=== PATIENT | female | born 1980 | race Caucasian/White ===

== ENCOUNTER 2020-05-18 09:08 | Outpatient (REF) | payer BC, SELFPAY ==
[2020-05-18 10:07] LABS: MANUAL DIFF FLAG NO
[2020-05-18 10:16] LABS: Basophils Percent Auto 0.4 % (0-2); Eosinophils Absolute Auto 0.1 X10*3/uL (0.0-0.4); Eosinophils Percent Auto 1.6 % (0-4); Hematocrit 38.2 % (37-47); Hemoglobin 12.1 g/dl (12.0-16.0); Imm Gran Abs Auto 0.02 X10*3/uL (0.00-0.03); Imm Gran Pct Auto 0.4 % (0.0-0.4); Lymphocytes Absolute Auto 1.3 X10*3/uL (1.2-4.9); Lymphocytes Percent Auto 25.9 % (20-40); Mean Corpuscular HGB Conc 31.7 g/dl (31.0-35.0); Mean Corpuscular Hemoglobin 27.2 pg (27.0-33.0); Mean Corpuscular Volume 85.8 fL (80-98); Mean Platelet Volume 10.6 fL (9.4-12.3); Monocytes Absolute Auto 0.4 X10*3/uL (0.1-1.2); Monocytes Percent Auto 7.5 % (2-11); Neutrophils Absolute Auto 3.3 X10*3/uL (2.0-8.3); Neutrophils Percent Auto 64.2 % (45-73); Platelet Count 227 X10*3/uL (160-400); Red Blood Count 4.45 X10*6/uL (4.20-5.50); Red Cell Distribution Width 14.9 % (11.0-16.0); White Blood Count 5.1 X10*3/uL (4.8-10.8)
[2020-05-18 10:48] LABS: Alanine Aminotransferase 17 U/L (0-31); Albumin Level 4.3 g/dL (3.5-5.0); Alkaline Phosphatase 66 U/L (39-117); Anion Gap 11 (12-20); Aspartate Amino Transferase 20 U/L (5-31); Bilirubin Total 0.5 mg/dL (0.0-1.0); Blood Urea Nitrogen 13 mg/dL (9-16); Calcium 8.4 mg/dL (8.4-10.2); Carbon Dioxide 29 mmol/L (22-29); Chloride 104 mmol/L (96-108); Cholesterol 167 mg/dL; Estimated Glomerular Filt Rate > 60; Glucose Fasting 91 mg/dL (60-99); HDL Cholesterol 49 mg/dL; LDL Cholesterol Calculated 102 mg/dl; Potassium 4.5 mmol/l (3.3-5.1); Sodium 139 mmol/L (135-145); Total Protein 6.8 g/dL (6.5-8.0); Triglycerides 83 mg/dL
[2020-05-18 11:12] LABS: Ferritin 1 ng/mL (10-250); Thyroid Stimulating Hormone 1.93 mIU/mL (0.32-4.0)
== END 2020-05-18 09:09 | disposition home or self-care (01) ==
LOC: HO.LAB 09:08
PROVIDERS: PCP Internal Medicine; Visit Provider Internal Medicine
DX: M51.16 Intervertebral disc disorders with radiculopathy, lumbar region (principal)
CPT/HCPCS: 36415; 80053; 80061; 82728; 84443; 85025

== ENCOUNTER 2020-06-12 09:00 | Outpatient (RCR) | payer BC, SELFPAY ==
--- NOTE | 2020-06-01 13:56 | MHC.PT.EP ---
[facility] [place] Office [place] Office [place] Office [address] Carlos Stanton [address] [phone] F: [phone] F: [phone] F: [phone] F: [phone] Physical Therapy Plan of Care Date of Evaluation: 06/01/20 Date of Surgery: Diagnosis: lumbar radiculopathy Assessment: The patient is presenting with symptoms consistent with a posterolateral derangement. The patient responded best to prone lying and slight trunk extension. The patient will need behavior modification, posture education, and body mechanics training to avoid aggravating her pain. She has reduced strength in right LE and associated radiculopathy. I believe she has excellent prognosis using Estee therapy. Frequency and Duration: The patient will be seen 2x/week x 5 weeks Short Term Goals: 1.Pt to able to demonstrate proper sitting posture with the use of a lumbar roll to decrease aggravating factors. 2. Pt to be able to demonstrate proper posture for common leisure activities such as crocheting and phone/tablet use. 3. For the patient to demonstrate proper upright sitting posture with use of the lumbar roll to improve compliance and carryover. Prison Goals: 4 weeks - The patient to demonstrate proper lifting mechanics for household chore activities to show improved functional mobility. 4 weeks - The patient to report no leg or hip pain in order to show centralization of pain and reduction of lumbar derangement 4 weeks - Pt to be able to demonstrate self management of lumbar pain by demonstration of HEP. Treatment Plan: Modalities to reduce pain, spasms and effusion. Manual therapy to restore motion and function. Therapeutic exercise to improve strength and flexibility. Neuromuscular re-education for posture and balance. Therapeutic activities to return to functional activities of daily living. Please sign and return to therapist. Thank you for your referral.
--- NOTE | 2020-07-13 14:41 | MHC.PT.DC ---
[facility] [place] Office [place] Office [place] Office [address] Carlos Stanton [address] [phone] F: [phone] F: [phone] F: [phone] F: [phone] Physical Therapy Discharge Report Diagnosis: lumbar radiculopathy Date of Surgery: Date of Evaluation: 06/01/20 Date of Discharge: 06/13/20 Treatments to Date: 2 Cancellations to Date: 0 No Shows to Date: 0 Discharge Status: Independent with HEP Discharge Summary: Pt only attended 2 visits. She did not have leg symptoms after her 2nd visit. She did not return to f/u visits. 06/12 pt reports 2 pillows prone lying relieve Left LE sx. pt to continue to address home stressors and work posture. Electronically signed by: Mitzi Daly PT DPT Please sign and return to therapist. Thank you for your referral.
== END 2020-07-26 07:52 | disposition other institution (70) ==
LOC: HO.PT 09:00
PROVIDERS: Visit Provider Internal Medicine
DX: M54.16 Radiculopathy, lumbar region (principal)
CPT/HCPCS: 97110; 97112; 97162

== ENCOUNTER 2021-01-16 07:46 | Outpatient (REF) | payer BC, SELFPAY ==
[2021-01-16 09:09] LABS: MANUAL DIFF FLAG NO
[2021-01-16 09:13] LABS: Basophils Percent Auto 0.2 % (0-2); Eosinophils Absolute Auto 0.1 X10*3/uL (0.0-0.4); Eosinophils Percent Auto 2.4 % (0-4); Hematocrit 36.4 % (37-47); Hemoglobin 11.2 g/dl (12.0-16.0); Imm Gran Abs Auto 0.02 X10*3/uL (0.00-0.03); Imm Gran Pct Auto 0.4 % (0.0-0.4); Lymphocytes Absolute Auto 1.4 X10*3/uL (1.2-4.9); Lymphocytes Percent Auto 30.6 % (20-40); Mean Corpuscular HGB Conc 30.8 g/dl (31.0-35.0); Mean Corpuscular Hemoglobin 25.5 pg (27.0-33.0); Mean Corpuscular Volume 82.9 fL (80-98); Mean Platelet Volume 10.5 fL (9.4-12.3); Monocytes Absolute Auto 0.4 X10*3/uL (0.1-1.2); Monocytes Percent Auto 8.7 % (2-11); Neutrophils Absolute Auto 2.6 X10*3/uL (2.0-8.3); Neutrophils Percent Auto 57.7 % (45-73); Platelet Count 283 X10*3/uL (160-400); Red Blood Count 4.39 X10*6/uL (4.20-5.50); Red Cell Distribution Width 15.4 % (11.0-16.0); White Blood Count 4.6 X10*3/uL (4.8-10.8)
[2021-01-16 09:35] LABS: Alanine Aminotransferase 16 U/L (0-31); Albumin Level 4.3 g/dL (3.5-5.0); Alkaline Phosphatase 69 U/L (39-117); Anion Gap 9 (12-20); Aspartate Amino Transferase 19 U/L (5-31); Bilirubin Total 0.3 mg/dL (0.0-1.0); Blood Urea Nitrogen 19 mg/dL (9-16); Calcium 9.1 mg/dL (8.4-10.2); Carbon Dioxide 28 mmol/L (22-29); Chloride 107 mmol/L (96-108); Estimated Glomerular Filt Rate > 60; Glucose Random 111 mg/dL (60-115); Potassium 4.3 mmol/L (3.3-5.1); Sodium 140 mmol/L (135-145); Total Protein 6.9 g/dL (6.5-8.0)
[2021-01-16 09:41] LABS: Ferritin 3 ng/mL (10-250); Thyroid Stimulating Hormone 1.92 uIU/mL (0.32-4.0)
== END 2021-01-16 07:47 | disposition home or self-care (01) ==
LOC: HO.LAB 07:46
PROVIDERS: PCP Internal Medicine; Visit Provider Internal Medicine
DX: D50.9 Iron deficiency anemia, unspecified (principal); G47.33 Obstructive sleep apnea (adult) (pediatric); M54.2 Cervicalgia; R21 Rash and other nonspecific skin eruption; R53.83 Other fatigue
CPT/HCPCS: 36415; 80053; 82728; 84443; 85025

== ENCOUNTER 2021-01-26 07:40 | Outpatient (REF) | payer BC, SELFPAY | END 2021-01-26 07:41 | disposition home or self-care (01) | LOC: HO.HOSX 07:40 | PROVIDERS: Visit Provider Physician Assistant | DX: Z13.89 Encounter for screening for other disorder (principal) ==

== ENCOUNTER 2021-02-07 06:34 | Outpatient (REF) | payer BC, SELFPAY | END 2021-02-07 06:35 | disposition home or self-care (01) | LOC: HO.HOSX 06:34 | PROVIDERS: Visit Provider Physician Assistant | DX: Z13.89 Encounter for screening for other disorder (principal) ==

== ENCOUNTER 2021-02-14 06:15 | Outpatient (REF) | payer BC, SELFPAY | END 2021-02-14 06:16 | disposition home or self-care (01) | LOC: HO.HOSX 06:15 | PROVIDERS: Visit Provider Physician Assistant | DX: Z13.89 Encounter for screening for other disorder (principal) ==

== ENCOUNTER 2022-07-29 11:42 | Outpatient (REF) | payer BC, SELFPAY ==
[2022-07-29 11:54] LABS: MANUAL DIFF FLAG NO
[2022-07-29 12:12] LABS: Basophils Percent Auto 0.4 % (0-2); Eosinophils Absolute Auto 0.1 X10*3/uL (0.0-0.4); Eosinophils Percent Auto 1.8 % (0-4); Hematocrit 36.9 % (37.0-47.0); Hemoglobin 11.9 g/dl (12.0-16.0); Imm Gran Abs Auto 0.01 X10*3/uL (0.00-0.03); Imm Gran Pct Auto 0.2 % (0.0-0.4); Lymphocytes Absolute Auto 1.6 X10*3/uL (1.2-4.9); Lymphocytes Percent Auto 28.1 % (20-40); Mean Corpuscular HGB Conc 32.2 g/dl (31.0-35.0); Mean Corpuscular Hemoglobin 25.9 pg (27.0-33.0); Mean Corpuscular Volume 80.4 fL (80.0-98.0); Monocytes Absolute Auto 0.3 X10*3/uL (0.1-1.2); Neutrophils Absolute Auto 3.5 x10*3/uL (2.0-8.3); Neutrophils Percent Auto 63.5 % (45-73); Platelet Count 270 X10*3/uL (160-400); Red Blood Count 4.59 X10*6/uL (4.20-5.50); Red Cell Distribution Width 15.8 % (11.0-16.0); White Blood Count 5.5 X10*3/uL (4.8-10.8)
[2022-07-29 12:47] LABS: Alanine Aminotransferase 39 U/L (0-31); Albumin Level 4.4 g/dL (3.5-5.0); Alkaline Phosphatase 77 U/L (39-117); Anion Gap 9 (12-20); Aspartate Amino Transferase 29 U/L (5-31); Bilirubin Total 0.6 mg/dL (0.0-1.0); Blood Urea Nitrogen 12 mg/dL (9-16); Calcium 9.1 mg/dL (8.4-10.2); Carbon Dioxide 27 mmol/L (22-29); Chloride 106 mmol/L (96-108); Cholesterol 203 mg/dL; Estimated Glomerular Filt Rate > 60; Glucose Random 158 mg/dL (60-115); HDL Cholesterol 53 mg/dL; LDL Cholesterol Calculated 131 mg/dl; Potassium 3.9 mmol/L (3.3-5.1); Sodium 138 mmol/L (135-145); Triglycerides 96 mg/dL
[2022-07-29 13:04] LABS: Ferritin 6 ng/mL (10-250); Thyroid Stimulating Hormone 1.55 uIU/mL (0.32-4.0)
== END 2022-07-29 11:43 | disposition home or self-care (01) ==
LOC: HO.LAB 11:42
PROVIDERS: PCP Internal Medicine; Visit Provider Internal Medicine
DX: Z00.00 Encounter for general adult medical examination without abnormal findings (principal); D50.8 Other iron deficiency anemias; E03.8 Other specified hypothyroidism; M70.62 Trochanteric bursitis, left hip
CPT/HCPCS: 36415; 80053; 80061; 82728; 84443; 85025

== ENCOUNTER 2023-05-23 08:43 | Outpatient (REF) | payer OTHER, SELFPAY ==
[2023-05-23 09:06] LABS: MANUAL DIFF FLAG NO
[2023-05-23 09:12] LABS: Basophils Percent Auto 0.6 % (0-2); Eosinophils Absolute Auto 0.1 X10*3/uL (0.0-0.4); Eosinophils Percent Auto 2.1 % (0-4); Hematocrit 34.2 % (37.0-47.0); Hemoglobin 10.5 g/dl (12.0-16.0); Imm Gran Abs Auto 0.02 X10*3/uL (0.00-0.03); Imm Gran Pct Auto 0.4 % (0.0-0.4); Lymphocytes Absolute Auto 1.5 X10*3/uL (1.2-4.9); Lymphocytes Percent Auto 30.4 % (20-40); Mean Corpuscular HGB Conc 30.7 g/dl (31.0-35.0); Mean Corpuscular Hemoglobin 23.9 pg (27.0-33.0); Mean Corpuscular Volume 77.9 fL (80.0-98.0); Mean Platelet Volume 9.9 fL (9.4-12.3); Monocytes Absolute Auto 0.4 X10*3/uL (0.1-1.2); Monocytes Percent Auto 8.5 % (2-11); Neutrophils Absolute Auto 2.8 x10*3/uL (2.0-8.3); Platelet Count 306 X10*3/uL (160-400); Red Blood Count 4.39 X10*6/uL (4.20-5.50); Red Cell Distribution Width 15.8 % (11.0-16.0); White Blood Count 4.8 X10*3/uL (4.8-10.8)
[2023-05-23 09:27] LABS: Estimated Average Glucose 117 mg/dL; Hemoglobin A1c % 5.7 % (<6.0)
[2023-05-23 09:52] LABS: Alanine Aminotransferase 19 U/L (0-31); Albumin Level 4.3 g/dL (3.5-5.0); Alkaline Phosphatase 73 U/L (39-117); Anion Gap 8 (12-20); Aspartate Amino Transferase 21 U/L (5-31); Bilirubin Total 0.5 mg/dL (0.0-1.0); Blood Urea Nitrogen 17 mg/dL (9-16); Calcium 8.9 mg/dL (8.4-10.2); Carbon Dioxide 27 mmol/L (22-29); Chloride 108 mmol/L (96-108); Estimated Glomerular Filt Rate > 60; Glucose Random 110 mg/dL (60-115); Potassium 3.9 mmol/L (3.3-5.1); Sodium 139 mmol/L (135-145); Total Protein 7.2 g/dL (6.5-8.0)
[2023-05-23 10:11] LABS: Thyroid Stimulating Hormone 1.17 uIU/mL (0.32-4.0)
== END 2023-05-23 08:44 | disposition home or self-care (01) ==
LOC: HO.LAB 08:43
PROVIDERS: PCP Internal Medicine; Visit Provider Internal Medicine
DX: Z00.00 Encounter for general adult medical examination without abnormal findings (principal); R73.01 Impaired fasting glucose; M51.16 Intervertebral disc disorders with radiculopathy, lumbar region; E03.9 Hypothyroidism, unspecified; D50.9 Iron deficiency anemia, unspecified
CPT/HCPCS: 36415; 80053; 83036; 84443; 85025

== ENCOUNTER 2023-09-29 11:45 | Outpatient (REF) | payer OTHER, SELFPAY ==
[2023-09-29 12:05] LABS: MANUAL DIFF FLAG NO
[2023-09-29 12:27] LABS: Basophils Percent Auto 0.6 % (0-2); Eosinophils Absolute Auto 0.1 X10*3/uL (0.0-0.4); Eosinophils Percent Auto 2.2 % (0-4); Hematocrit 33.8 % (37.0-47.0); Hemoglobin 10.2 g/dl (12.0-16.0); Imm Gran Abs Auto 0.02 X10*3/uL (0.00-0.03); Imm Gran Pct Auto 0.4 % (0.0-0.4); Lymphocytes Absolute Auto 1.6 X10*3/uL (1.2-4.9); Lymphocytes Percent Auto 31.7 % (20-40); Mean Corpuscular HGB Conc 30.2 g/dl (31.0-35.0); Mean Corpuscular Hemoglobin 22.7 pg (27.0-33.0); Mean Corpuscular Volume 75.3 fL (80.0-98.0); Mean Platelet Volume 9.9 fL (9.4-12.3); Monocytes Absolute Auto 0.5 X10*3/uL (0.1-1.2); Neutrophils Absolute Auto 2.9 x10*3/uL (2.0-8.3); Neutrophils Percent Auto 56.1 % (45-73); Platelet Count 299 X10*3/uL (160-400); Red Blood Count 4.49 X10*6/uL (4.20-5.50); Red Cell Distribution Width 17.4 % (11.0-16.0); White Blood Count 5.1 X10*3/uL (4.8-10.8)
[2023-09-29 13:15] LABS: Ferritin 4 ng/mL (10-250); Thyroid Stimulating Hormone 0.95 uIU/mL (0.32-4.0)
== END 2023-09-29 11:46 | disposition home or self-care (01) ==
LOC: HO.LAB 11:45
PROVIDERS: PCP Internal Medicine; Visit Provider Internal Medicine
DX: D50.9 Iron deficiency anemia, unspecified (principal); E03.9 Hypothyroidism, unspecified; J01.90 Acute sinusitis, unspecified
CPT/HCPCS: 36415; 82728; 84443; 85025

== ENCOUNTER 2023-10-10 09:31 | Outpatient (AMB) | payer OTHER, SELFPAY ==
[2023-10-10 09:36] VITALS: BP 104/68; BMI 28.5
--- NOTE | 2023-10-10 09:36 | MHC.OFFVIS ---
Intake Vital Signs 10/10/23 09:36 Height 5 ft 1 in Weight 151 lb BMI 28.5 BP 104/68 Intake Visit Reasons: heavy painful menses/Referral Intake Note: heavy bleeding on her menses and having irregular periods also having a lot of blood clots Rotor Balancer Required: No Information Interpreted: non-clinical & clinical Room Service Waiter/Waitress: Room Service Waiter/Waitress Present (Evangelina) Allergies No Known Allergies Allergy (Verified 10/10/23 09:37) Medication List - Last Reviewed 10/10/23 by HALLIE Lee ferrous sulfate (iron) 325 mg PO DAILY levothyroxine 100 mcg PO DAILY Is last menstrual period known: Yes Last menstrual period: 09/20/23 Post menopausal: No HPI heavy painful menses/Referral HPI Details Patient is here as a referral from her primary care provider Dr. Morrison She said for the last 6 months she has had very irregular periods they have been lingering longer than usual with big clots they stop and start sometimes they start with spotting her last menstrual period started with spotting on September 19 for 3-5 days and then on September 22 became heavy and she said it stayed heavy till the +she got up from the couch on the which was last Friday and had a big go clot. She has her had her tubes tied she gets regular Pap smears and everything with Dr. Leonard She said her last Pap smear was in 2020 she thinks she may have had an abnormal 1 years ago but then they were normal. She said she was given control pills to start this month for hot flashes and she started them on the and she checked in her phone and she is finding the name of the pill currently she was given them by her primary care provider. [facility] Female Reproductive History Menstrual Age of Menarche: 15 Duration of menses: 3-5 days Date of last menstrual period: 09/20/23 control method: pills Total pregnancies: 2 Full term: 2 Number of Living Children: 2 Physical Exam Vital Signs: Last Vital Signs BP 104/68 10/10/23 09:36 BMI result Body Mass Index 28.5 External Female Exam: normal external appearance Speculum Exam - Vagina: normal appearance of the vagina and normal vaginal discharge Speculum Exam - Cervix: normal appearance of the cervix Bimanual exam- vagina & uterus: normal bimanual exam, uterine size normal, consistency normal, uterine mobility normal, uterine shape normal and non-tender Bimanual Exam- Adnexa, other: normal adnexae, no masses and No adnexal tenderness Assessment & Plan Assessment & Plan (1) Abnormal uterine bleeding (AUB): Comment: x6 months, irreg menses... Code(s): N93.9 - Abnormal uterine and vaginal bleeding, unspecified (2) Cervical cancer screening: Code(s): Z12.4 - Encounter for screening for malignant neoplasm of cervix (3) Encounter for screening examination for sexually transmitted disease: Code(s): Z11.3 - Encounter for screening for infections with a predominantly sexual mode of transmission (4) Hx of iron deficiency anemia: Code(s): Z86.2 - Personal history of diseases of the blood and blood-forming organs and certain disorders involving the immune mechanism (5) Hypothyroid: Code(s): E03.9 - Hypothyroidism, unspecified Plan Patient is on iron and control pills that she started on September 29 10 days ago which have improved her vaginal bleeding profile. She is going to be following up with her primary care provider about this issue and she will also inquire as to whether not she wants her to continue on the control pills. She says that her primary care provider told her she was giving them to her to help with hot flashes I did share that usually they are prescribed to help with the bleeding but in this case probably they are helping with both. Recommend that we do some testing and I am recommending we start with a pelvic ultrasound and depending on findings and moving on from there a endometrial biopsy might be recommended. Discussed the ranges of findings could be all the way from benign to something problematic but often they can be within the range of normal experiences rubi menopausal. We will see her after the ultrasound. Orders: Orders US pelvic and transvaginal Today N93.9 - Abnormal uterine and vaginal bleeding, unspecified, Z86.2 - Personal history of diseases of the blood and blood-forming organs and certain disorders involving the immune mechanism Coding Level of Care Code New Pt Level 3 (68382) Diagnoses Abnormal uterine bleeding (AUB) N93.9 Cervical cancer screening Z12.4 Encounter for screening examination for sexually transmitted disease Z11.3 Hx of iron deficiency anemia Z86.2 Hypothyroid E03.9
== END 2023-10-10 10:10 | disposition home or self-care (01) ==
PROVIDERS: PCP Internal Medicine; Visit Provider Advanced Practice Midwife
DX: N93.9 Abnormal uterine and vaginal bleeding, unspecified (principal); Z12.4 Encounter for screening for malignant neoplasm of cervix; Z11.3 Encounter for screening for infections with a predominantly sexual mode of transmission; Z86.2 Personal history of diseases of the blood and blood-forming organs and certain disorders involving the immune mechanism; E03.9 Hypothyroidism, unspecified
CPT/HCPCS: 99203

== ENCOUNTER 2023-10-10 09:31 | Outpatient (REF) | payer OTHER, SELFPAY ==
[2023-10-11 09:23] LABS: CT PCR NOT DETECTED (Not Detect.); NG PCR NOT DETECTED (Not Detect.)
[2023-10-11 11:15] LABS: BV Int Neg Control Negative (Negative); BV Int Pos Control Positive (Positive)
[2023-10-17 22:14] LABS: HPV mRNA E6/E7 rflx Not Detected (Not Detected)
== END 2023-10-10 09:32 | disposition home or self-care (01) ==
LOC: HO.LNP 09:31
PROVIDERS: PCP Internal Medicine; Visit Provider Advanced Practice Midwife
DX: Z12.4 Encounter for screening for malignant neoplasm of cervix (principal); Z11.51 Encounter for screening for human papillomavirus (HPV); N93.9 Abnormal uterine and vaginal bleeding, unspecified; E03.9 Hypothyroidism, unspecified; Z86.2 Personal history of diseases of the blood and blood-forming organs and certain disorders involving the immune mechanism; Z20.2 Contact with and (suspected) exposure to infections with a predominantly sexual mode of transmission
CPT/HCPCS: 0353U; 87480; 87510; 87624; 87660; 88142

== ENCOUNTER 2023-11-14 11:19 | Outpatient (REF) | payer OTHER, SELFPAY ==
--- NOTE | ~2023-11-14 | US_ITS ---
EXAMINATION: US PELVIS CLINICAL INFORMATION: Abnormal uterine bleeding LMP: Last week COMPARISON: CT scan abdomen and pelvis 11/02/2014 TECHNIQUE: Ultrasound of the pelvis is performed using both transabdominal and transvaginal transducers along with Doppler. Transvaginal imaging is performed due to inadequate visualization transabdominally. FINDINGS: Uterus: The uterus is anteverted and measures 7.8 x 3.8 x 5.3 cm. 0.8 x 0.5 x 0.8 cm intramural fibroid is seen in the posterior body. 0.8 x 0.8 x 0.8 cm intramural fibroid is seen on the left in the body. The endometrial thickness is 0.9 cm Adnexa: Both ovaries are visualized. There is normal color flow to the adnexa. There is no ovarian torsion. There is no pelvic ascites or fluid collection. Right ovary measures 4.0 x 2.6 x 3.4 cm. Volume 18.5 mL. The right ovary contains a 2.4 x 1.4 x 1.8 cm benign cyst/dominant follicle. No follow-up imaging is recommended. Left ovary is normal in appearance and measures 2.5 x 1.0 x 1.6 cm. Volume 2.1 mL US/US pelvic and transvaginal IMPRESSION: 1. 2 small intramural fibroids. 2. 2.4 cm benign cyst/dominant follicle in the right ovary. No follow-up imaging is recommended. 3. Normal left ovary.
== END 2023-11-14 11:20 | disposition home or self-care (01) ==
LOC: HO.US 11:19
PROVIDERS: PCP Internal Medicine; Visit Provider Advanced Practice Midwife
DX: Z86.2 Personal history of diseases of the blood and blood-forming organs and certain disorders involving the immune mechanism (principal); N93.9 Abnormal uterine and vaginal bleeding, unspecified
CPT/HCPCS: 76830; 76856

== ENCOUNTER 2024-05-10 07:48 | Outpatient (REF) | payer OTHER, SELFPAY ==
[2024-05-10 07:58] LABS: MANUAL DIFF FLAG NO
[2024-05-10 08:43] LABS: Basophils Percent Auto 0.5 % (0-2); Eosinophils Absolute Auto 0.1 X10*3/uL (0.0-0.4); Eosinophils Percent Auto 2.3 % (0-4); Hematocrit 41.4 % (37.0-47.0); Hemoglobin 13.8 g/dl (12.0-16.0); Imm Gran Abs Auto 0.02 X10*3/uL (0.00-0.03); Imm Gran Pct Auto 0.4 % (0.0-0.4); Lymphocytes Absolute Auto 1.5 X10*3/uL (1.2-4.9); Lymphocytes Percent Auto 25.9 % (20-40); Mean Corpuscular HGB Conc 33.3 g/dl (31.0-35.0); Mean Corpuscular Hemoglobin 29.5 pg (27.0-33.0); Mean Corpuscular Volume 88.5 fL (80.0-98.0); Mean Platelet Volume 10.4 fL (9.4-12.3); Monocytes Absolute Auto 0.4 X10*3/uL (0.1-1.2); Neutrophils Absolute Auto 3.6 x10*3/uL (2.0-8.3); Neutrophils Percent Auto 63.9 % (45-73); Platelet Count 255 X10*3/uL (160-400); Red Blood Count 4.68 X10*6/uL (4.20-5.50); Red Cell Distribution Width 12.7 % (11.0-16.0); White Blood Count 5.6 X10*3/uL (4.8-10.8)
[2024-05-10 09:00] LABS: Thyroid Stimulating Hormone 3.17 uIU/mL (0.32-4.0)
== END 2024-05-10 07:49 | disposition home or self-care (01) ==
LOC: HO.LAB 07:48
PROVIDERS: PCP Internal Medicine; Visit Provider Internal Medicine
DX: D50.8 Other iron deficiency anemias (principal); N92.1 Excessive and frequent menstruation with irregular cycle; N95.1 Menopausal and female climacteric states; Z68.31 Body mass index [BMI] 31.0-31.9, adult
CPT/HCPCS: 36415; 84443; 85025

== ENCOUNTER 2025-01-05 08:02 | Outpatient (REF) | payer OTHER, SELFPAY ==
--- OUTSIDE RECORDS SUMMARY | 2025-01-05 08:14 | XMS_ITS ---
Author Name [facility] Organization Unknown Care Team Organization Name Specialty Phone Email Start Date End Da te [facility] Data Feeds 02/14/2024
[2025-01-05 08:21] LABS: MANUAL DIFF FLAG NO
[2025-01-05 09:06] LABS: Basophils Percent Auto 0.4 % (0-2); Eosinophils Absolute Auto 0.1 X10*3/uL (0.0-0.4); Hematocrit 38.7 % (37.0-47.0); Hemoglobin 12.5 g/dl (12.0-16.0); Imm Gran Abs Auto 0.02 X10*3/uL (0.00-0.03); Imm Gran Pct Auto 0.4 % (0.0-0.4); Lymphocytes Absolute Auto 1.2 X10*3/uL (1.2-4.9); Lymphocytes Percent Auto 25.9 % (20-40); Mean Corpuscular HGB Conc 32.3 g/dl (31.0-35.0); Mean Corpuscular Hemoglobin 27.7 pg (27.0-33.0); Mean Corpuscular Volume 85.8 fL (80.0-98.0); Mean Platelet Volume 10.3 fL (9.4-12.3); Monocytes Absolute Auto 0.4 X10*3/uL (0.1-1.2); Monocytes Percent Auto 8.6 % (2-11); Neutrophils Absolute Auto 2.8 x10*3/uL (2.0-8.3); Neutrophils Percent Auto 62.7 % (45-73); Platelet Count 251 X10*3/uL (160-400); Red Blood Count 4.51 X10*6/uL (4.20-5.50); Red Cell Distribution Width 14.9 % (11.0-16.0); White Blood Count 4.5 X10*3/uL (4.8-10.8)
[2025-01-05 09:58] LABS: Alanine Aminotransferase 20 U/L (0-31); Albumin Level 4.5 g/dL (3.5-5.0); Alkaline Phosphatase 59 U/L (39-117); Anion Gap 12 (12-20); Aspartate Amino Transferase 21 U/L (5-31); Bilirubin Total 0.7 mg/dL (0.0-1.0); Blood Urea Nitrogen 11 mg/dL (9-16); Calcium 8.8 mg/dL (8.4-10.2); Carbon Dioxide 23 mmol/L (22-29); Chloride 108 mmol/L (96-108); Cholesterol 187 mg/dL (<200); Estimated Glomerular Filt Rate > 60; Glucose Random 113 mg/dL (60-115); HDL Cholesterol 52 mg/dL (>40); LDL Cholesterol Calculated 120 mg/dL (<100); Potassium 3.7 mmol/L (3.3-5.1); Sodium 139 mmol/L (135-145); Total Protein 6.8 g/dL (6.5-8.0); Triglycerides 78 mg/dL (<150)
[2025-01-05 10:17] LABS: Thyroid Stimulating Hormone 0.69 uIU/mL (0.32-4.0)
== END 2025-01-05 08:03 | disposition home or self-care (01) ==
LOC: HO.LAB 08:02
PROVIDERS: PCP Internal Medicine; Visit Provider Internal Medicine
DX: D50.8 Other iron deficiency anemias (principal); G47.33 Obstructive sleep apnea (adult) (pediatric); K21.9 Gastro-esophageal reflux disease without esophagitis; M20.11 Hallux valgus (acquired), right foot; R09.81 Nasal congestion
CPT/HCPCS: 36415; 80053; 80061; 84443; 85025